=== PATIENT | female | born 1935 | race African-American/Black ===

== ENCOUNTER 2019-04-30 14:20 | Emergency (ER) | payer MEDICARE ==
[2019-04-30] MEDS ORDERED: Adacel (T-DAP) 0.5 ML SYRINGE ONE (14:33)
--- NOTE | 2019-04-30 14:57 | CT ---
Exam: Head CT without contrast HISTORY: Trauma. Fall. Pain. COMPARISON: none FINDINGS: Hemorrhage: No intraparenchymal hemorrhage or extra-axial hematoma. Brain parenchyma: Cortical merlos-white matter differentiation is preserved. No mass effect or midline shift. Basilar cisterns are patent.Age-appropriate atrophy. Chronic small vessel ischemic changes of the white matter. Ventricular system: Ventricles and sulci are patent and symmetric. Calvarium: Intact. Sinuses and mastoid air cells: Adequate aeration. Orbits and facial soft tissues: No posttraumatic change. Bilateral ocular lens implants are appropria tely located IMPRESSION: No acute posttraumatic sequelae.
--- NOTE | 2019-04-30 15:01 | CT ---
Exam: CT cervical spine without contrast HISTORY: Trauma. Pain. COMPARISON: None FINDINGS: No craniocervical dissociation. Appropriate alignment of the lateral masses of C1 and C2. Intact odon toid process Appropriate alignment of the facets. Straightening of cervical lordosis is presumed to be due to patient position, muscle spasm or cervica l collar. Soft tissue neck structures: Atherosclerosis of the right carotid artery. Nonspecific calcification i n the left neck. Asymmetric fullness in the posterior left hypopharynx. The possibility of mucosal-based lesion cannot be entirely excluded. Nonemergent direct visualization and ENT consultati on is recommended (axial image #27, series 2). Upper mediastinum and lung apices: Unremarkable Central spinal canal: Multilevel degenerative changes of the cervical spine with loss of disc space h eight and osteophyte formation. There are varying degrees of central canal stenosis and neural foraminal narrowing. Technique limits evaluation. Vertebral bodies: Cervical spine vertebral body height is maintained. No fracture. IMPRESSION: 1. No fracture. 2. Asymmetric mucosal prominence in the posterior left hypopharynx. Recommendations as above. 3. Straightening of cervical lordosis as described above. MRI if there is concern for ligamentous inj ury.
== END 2019-04-30 15:58 | disposition home or self-care (01) ==
LOC: ERS 14:20
DX: S00.81XA Abrasion of other part of head, initial encounter (principal); I10 Essential (primary) hypertension; Z79.82 Long term (current) use of aspirin; Z79.899 Other long term (current) drug therapy; W18.30XA Fall on same level, unspecified, initial encounter
CPT/HCPCS: 70450; 72125; 90471; 90715

== ENCOUNTER 2020-02-03 11:27 | Emergency (ER) | payer MEDICARE ==
--- NOTE | 2020-02-03 12:32 | RAD ---
Chest AP view INDICATION: Dyspnea COMPARISON: Prior acute abdominal series dated October 10, 2016 FINDINGS: Lungs: Stable chronic lung changes Cardiac silhouette: Stable mild cardiomegaly Pulmonary vasculature: Normal Pleural spaces: No pleural effusion or pneumothorax is demonstrated. Upper abdomen: No abnormality seen. Osseous structures: The sclerotic lesion of the proximal right humerus is stable to comparison dated 02/25/2016 is suspicious for a low-grade chondroid lesion. Additional findings: None. IMPRESSION: No acute cardiopulmonary abnormality.
[2020-02-03 12:55] LABS: #Lymphocytes 0.9 thou/uL (1.20-3.40); #Monocytes 0.3 thou/uL (0.11-0.59); %Basophils 1.3 % (0.0-1.0); %Eosinophils 0.7 % (0.0-10.0); %Lymphocytes 41.5 % (21.0-51.0); %Monocytes 11.4 % (0.0-10.0); %Neutrophils 45.1 % (42.0-75.0); Hemoglobin 13.1 g/dL (12.0-16.0); Mean Corpuscular HGB CONC 31.7 g/dL (32.0-36.0); Mean Corpuscular Hemoglobin 29.2 pg (27.0-31.0); Mean Corpuscular Volume 91.9 fL (78.0-98.0); Platelet Count 124 thou/uL (130-400); RBC Distribution Width 12.5 % (11.5-14.5); Red Blood Cell (RBC) Count 4.48 mill/uL (4.20-5.40); White Blood Cell (WBC) Count 2.3 thou/uL (4.8-10.8)
[2020-02-03 12:57] LABS: INR-International Normal Ratio 1.1; PTT 30.6 sec (22.9-36.1); Prothrombin Time 13.9 sec (12.0-14.7)
--- NOTE | 2020-02-03 13:12 | CT ---
CT Brain WO Con: 02/03/2020 1:00 PM CLINICAL HISTORY: Headache with dizziness. IMAGING TECHNIQUE: Multiple CT images were obtained of the brain without IV contrast. COMPARISON: Prior exam dated April 30, 2019 FINDINGS: BRAIN: Evidence of acute infarct: None. Evidence of chronic ischemic change:Stable moderate chronic small vessel white matter ischemic change . Evidence of intracranial hemorrhage: None. Evidence of brain volume loss:Stable generalized cerebral and cerebellar atrophy Evidence of midline shift: Third ventricle and septum pellucidum are midline. Ventricles: Normal. No hydrocephalus. SKULL: Intact. VISUALIZED PARANASAL SINUSES: Clear. MASTOID AIR CELLS: Clear. EXTRACRANIAL SOFT TISSUES: Normal. IMPRESSION: No acute intracranial abnormality.
[2020-02-03 13:14] LABS: ALT (SGPT) 16 U/L (8-55); AST (SGOT) 23 U/L (5-34); Albumin 3.9 g/dL (3.4-4.8); Alkaline Phosphatase 42 U/L (40-110); Anion Gap 12 mmol/L (10-20); BUN (Urea Nitrogen) 9 mg/dL (9.8-20.1); Bilirubin, Total 0.3 mg/dL (0.2-1.2); Calc. Creatinine Clearance 0 mL/min (70-130); Calcium 8.9 mg/dL (7.8-10.44); Carbon Dioxide 29 mmol/L (23-31); Chloride 104 mmol/L (98-107); Globulin 3.4 g/dL (2.4-3.5); Glucose 87 mg/dL (83-110); Potassium 3.2 mmol/L (3.5-5.1); Protein, Total 7.3 g/dL (6.0-8.3); Sodium 142 mmol/L (136-145)
[2020-02-03 14:07] LABS: Bacteria/HPF 4+ HPF (None Seen); Bilirubin Negative (Negative); Blood, Urine Trace (Negative); Clarity Turbid (Clear); Glucose, Urine (Dipstick) Normal (Negative); Ketone, Urine Negative (Negative); Leukocyte Negative Leu/uL (Negative); Mucous/LPF 1+ LPF (<2+); Nitrite Negative (Negative); Protein, Urine (Dipstick) 10 mg/dL (Neg-Trace); Urobilinogen Normal mg/dL (Less than 2); WBC/HPF 0-3 HPF (0-3); pH, Urine 6.5 (5.0-9.0)
[2020-02-04 00:01] LABS: SARS-CoV-2 by NAA DETECTED (NotDetected); SARS-CoV-2 orf1ab Positive
[2020-02-04 00:02] LABS: SARS-CoV-2 MS2 Positive; SARS-CoV-2 N Gene Positive; SARS-CoV-2 S Gene Positive
== END 2020-02-03 15:30 | disposition home or self-care (01) ==
LOC: ERS 11:27
DX: R53.81 Other malaise (principal); I10 Essential (primary) hypertension
CPT/HCPCS: 70450; 71045; 80053; 84484; 85025; 85610; 85730; 93005; U0003; 36415; 81003; 81015; 87635

== ENCOUNTER 2022-02-05 19:28 | Inpatient (IN) | payer MEDICARE ==
[2022-02-05 20:08] LABS: #Lymphocytes 1.7 thou/uL (1.20-3.40); #Monocytes 0.5 thou/uL (0.11-0.59); #Neutrophils 2.5 thou/uL (1.40-6.50); %Basophils 0.4 % (0.0-1.0); %Eosinophils 0.6 % (0.0-10.0); %Lymphocytes 36.2 % (21.0-51.0); %Monocytes 9.5 % (0.0-10.0); %Neutrophils 53.4 % (42.0-75.0); Hemoglobin 12.4 g/dL (12.0-16.0); Mean Corpuscular HGB CONC 32.6 g/dL (32.0-36.0); Mean Corpuscular Hemoglobin 30.2 pg (27.0-31.0); Mean Corpuscular Volume 92.8 fl (78.0-98.0); Mean Platelet Volume 8.7 fL (7.4-10.4); Platelet Count 150 10x3/uL (130-400); RBC Distribution Width 12.6 % (11.5-14.5); Red Blood Cell (RBC) Count 4.11 mill/uL (4.20-5.40); White Blood Cell (WBC) Count 4.7 10x3/uL (4.8-10.8)
[2022-02-05 20:30] LABS: Bacteria/HPF None Seen HPF (None Seen); Bilirubin Negative (Negative); Blood, Urine Trace (Negative); Clarity Turbid (Clear); Glucose, Urine (Dipstick) 30 mg/dL (Negative); Ketone, Urine 40 mg/dL (Negative); Leukocyte Negative Leu/uL (Negative); Nitrite Negative (Negative); Protein, Urine (Dipstick) 30 mg/dL (Neg-Trace); Specific Gravity, Urine 1.019 (1.002-1.036); Squamous Epithelial 0-3 HPF (0-3)
[2022-02-05 20:43] LABS: ALT (SGPT) 12 U/L (8-55); AST (SGOT) 34 U/L (5-34); Albumin 3.8 g/dL (3.4-4.8); Alkaline Phosphatase 41 U/L (40-110); Anion Gap 15 mmol/L (10-20); BUN (Urea Nitrogen) 12 mg/dL (9.8-20.1); Bilirubin, Total 0.8 mg/dL (0.2-1.2); Calc. Creatinine Clearance 0 mL/min (70-130); Calcium 9.2 mg/dL (7.8-10.44); Carbon Dioxide 25 mmol/L (23-31); Chloride 105 mmol/L (98-107); Estimated GFR 58; Glucose 120 mg/dL (83-110); Potassium 3.4 mmol/L (3.5-5.1); Protein, Total 6.8 g/dL (5.8-8.1)
[2022-02-05 20:49] LABS: CKMB 8.3 ng/mL (0-6.6); Sodium 142 mmol/L (136-145)
[2022-02-05] MEDS ORDERED: Electrolyte Replacement Protocol 1 EACH FS PRN (21:15)
[2022-02-05] MEDS ORDERED: Aspirin 325 MG TAB ONE (21:23)
[2022-02-05 21:30] LABS: CK (CPK) 974 U/L (29-168); Magnesium 1.8 mg/dL (1.6-2.6)
[2022-02-05] MEDS ORDERED: Ondansetron PF 4 MG/2 ML Vial IVP PRN (21:56)
[2022-02-05] MEDS ORDERED: Ondansetron ODT 4 MG TAB PO PRN (21:56)
[2022-02-05 21:58] LABS: Phosphorus 3.7 mg/dL (2.3-4.7)
[2022-02-05 22:46] LABS: Amphetamine Not Detected (NotDetected); Barbiturates Screen Not Detected (NotDetected); Benzodiazepine Screen Not Detected (NotDetected); Cocaine Metabolite Screen Not Detected (NotDetected); Methadone Not Detected (NotDetected); Methamphetamine Not Detected (NotDetected); Opiate Screen Not Detected (NotDetected); Oxycodone Screen Not Detected (NotDetected); Phencyclidine (PCP) Not Detected (NotDetected); THC/Cannabinoid Screen Not Detected (NotDetected); Tricyclic Screen Not Detected (NotDetected)
[2022-02-05] MEDS ORDERED: Magnesium 2 GM/50 ML(in water) 2 GM in Premix Bag 1 BAG IVPB SCH (23:59)
[2022-02-06 00:01] LABS: Troponin I 0.103 ng/mL (< 0.028)
[2022-02-06 02:58] LABS: Troponin I 0.112 ng/mL (< 0.028)
[2022-02-06 03:36] LABS: SARS-CoV-2 NAA Rapid Test Not Detected (NotDetected)
[2022-02-06 08:04] LABS: #Eosinphils 0.1 thou/uL (0.0-0.7); #Lymphocytes 1.6 thou/uL (1.20-3.40); #Monocytes 0.4 thou/uL (0.11-0.59); #Neutrophils 1.9 thou/uL (1.40-6.50); %Basophils 0.7 % (0.0-1.0); %Eosinophils 1.8 % (0.0-10.0); %Lymphocytes 39.4 % (21.0-51.0); %Monocytes 9.8 % (0.0-10.0); %Neutrophils 48.3 % (42.0-75.0); Hemoglobin 12.8 g/dL (12.0-16.0); Mean Corpuscular HGB CONC 31.6 g/dL (32.0-36.0); Mean Corpuscular Hemoglobin 29.5 pg (27.0-31.0); Mean Corpuscular Volume 93.3 fl (78.0-98.0); Mean Platelet Volume 8.6 fL (7.4-10.4); Platelet Count 164 10x3/uL (130-400); RBC Distribution Width 12.5 % (11.5-14.5); Red Blood Cell (RBC) Count 4.33 mill/uL (4.20-5.40); White Blood Cell (WBC) Count 3.9 10x3/uL (4.8-10.8)
[2022-02-06 08:29] LABS: Anion Gap 21 mmol/L (10-20); BUN (Urea Nitrogen) 7 mg/dL (9.8-20.1); Calc. Creatinine Clearance 0 mL/min (70-130); Calcium 8.8 mg/dL (7.8-10.44); Carbon Dioxide 14 mmol/L (23-31); Chloride 117 mmol/L (98-107); Estimated GFR 81; Glucose 89 mg/dL (83-110); Sodium 148 mmol/L (136-145)
[2022-02-06] MEDS ORDERED: Amlodipine 5 MG TAB PO SCH (11:08)
[2022-02-06] MEDS: Lactated Ringer's 1,000 ML IV SCH (11:31)
[2022-02-06] MEDS ORDERED: Amlodipine 5 MG TAB ONE (11:31)
[2022-02-06] MEDS: NS 0.9% w/ 40 MEQ KCL 1,000 ML IV SCH (14:03)
[2022-02-06 17:57] VITALS: BMI 18.1
[2022-02-06] MEDS: Donepezil HCl 5 MG TAB PO SCH (20:45)
[2022-02-06] MEDS: Atorvastatin Calcium 10 MG TAB PO SCH (20:45)
[2022-02-07] MEDS: Lactated Ringer's 1,000 ML IV SCH ×2 (06:48→20:48)
[2022-02-07 06:55] LABS: #Lymphocytes 1.3 thou/uL (1.20-3.40); #Monocytes 0.3 thou/uL (0.11-0.59); #Neutrophils 1.9 thou/uL (1.40-6.50); %Basophils 0.8 % (0.0-1.0); %Eosinophils 1.1 % (0.0-10.0); %Monocytes 7.3 % (0.0-10.0); %Neutrophils 53.7 % (42.0-75.0); Hemoglobin 13.7 g/dL (12.0-16.0); Mean Corpuscular HGB CONC 31.9 g/dL (32.0-36.0); Mean Corpuscular Hemoglobin 29.6 pg (27.0-31.0); Mean Corpuscular Volume 92.7 fl (78.0-98.0); Mean Platelet Volume 8.8 fL (7.4-10.4); Platelet Count 171 10x3/uL (130-400); RBC Distribution Width 12.6 % (11.5-14.5); Red Blood Cell (RBC) Count 4.63 mill/uL (4.20-5.40); White Blood Cell (WBC) Count 3.6 10x3/uL (4.8-10.8)
[2022-02-07 07:15] LABS: Anion Gap 12 mmol/L (10-20); BUN (Urea Nitrogen) 8 mg/dL (9.8-20.1); Calc. Creatinine Clearance 57 mL/min (70-130); Calcium 9.2 mg/dL (7.8-10.44); Carbon Dioxide 27 mmol/L (23-31); Chloride 101 mmol/L (98-107); Estimated GFR 87; Glucose 81 mg/dL (83-110); Potassium 3.3 mmol/L (3.5-5.1); Sodium 137 mmol/L (136-145)
[2022-02-07] MEDS ORDERED: Potassium Chloride 20 MEQ TAB PO SCH (08:00)
[2022-02-07] MEDS ORDERED: hydrALAZINE 25 MG TAB PO PRN (08:14)
[2022-02-07] MEDS ORDERED: Multivit, Adult Inj 10 ML VIAL IV SCH (08:15)
[2022-02-07] MEDS ORDERED: Amlodipine 5 MG TAB PO SCH ×2 (09:00)
[2022-02-07] MEDS: Folic Acid 1 MG TAB PO SCH (09:39)
[2022-02-07] MEDS: PARoxetine 20 MG TAB PO SCH (09:39)
[2022-02-07] MEDS: Cyanocobalamin (Vitamin B-12) 1,000 MCG TAB PO SCH (09:40)
[2022-02-07] MEDS ORDERED: Multivitamins, Adult 10 ML in Sodium Chloride 0.9% 500 ML IV SCH (10:00)
[2022-02-07] MEDS: Megestrol Acetate 40 MG TAB PO SCH (10:37)
[2022-02-07] MEDS ORDERED: Potassium Bicarbonate/Cit Ac 20 MEQ TAB PO SCH (17:00)
[2022-02-07] MEDS: Atorvastatin Calcium 10 MG TAB PO SCH (20:49)
[2022-02-07] MEDS: Donepezil HCl 5 MG TAB PO SCH (20:49)
[2022-02-07] MEDS: Acetaminophen 325 MG TAB PO PRN (20:50)
[2022-02-07] MEDS: Senokot S 8.6-50 MG TAB PO SCH (21:04)
[2022-02-08 06:31] LABS: Anion Gap 14 mmol/L (10-20); BUN (Urea Nitrogen) 12 mg/dL (9.8-20.1); CK (CPK) 448 U/L (29-168); Calc. Creatinine Clearance 56 mL/min (70-130); Calcium 9.5 mg/dL (7.8-10.44); Carbon Dioxide 23 mmol/L (23-31); Estimated GFR 86; Glucose 93 mg/dL (83-110); Magnesium 1.5 mg/dL (1.6-2.6); Sodium 139 mmol/L (136-145)
[2022-02-08 06:33] LABS: Chloride 106 mmol/L (98-107)
[2022-02-08 07:54] LABS: #Eosinphils 0.1 thou/uL (0.0-0.7); #Lymphocytes 1.7 thou/uL (1.20-3.40); #Monocytes 0.5 thou/uL (0.11-0.59); #Neutrophils 3.5 thou/uL (1.40-6.50); %Basophils 0.3 % (0.0-1.0); %Eosinophils 1.2 % (0.0-10.0); %Lymphocytes 29.1 % (21.0-51.0); %Monocytes 8.9 % (0.0-10.0); %Neutrophils 60.6 % (42.0-75.0); Mean Corpuscular HGB CONC 32.6 g/dL (32.0-36.0); Mean Corpuscular Hemoglobin 30.2 pg (27.0-31.0); Mean Corpuscular Volume 92.6 fl (78.0-98.0); Platelet Count 175 10x3/uL (130-400); RBC Distribution Width 12.6 % (11.5-14.5); Red Blood Cell (RBC) Count 4.31 mill/uL (4.20-5.40); White Blood Cell (WBC) Count 5.8 10x3/uL (4.8-10.8)
[2022-02-08] MEDS ORDERED: Magnesium 2 GM/50 ML(in water) 2 GM in Premix Bag 1 BAG IVPB SCH (08:00)
[2022-02-08] MEDS: Amlodipine 5 MG TAB PO SCH ×2 (08:21→21:34)
[2022-02-08] MEDS: Senokot S 8.6-50 MG TAB PO SCH ×2 (08:22→21:34)
[2022-02-08] MEDS: Folic Acid 1 MG TAB PO SCH (08:22)
[2022-02-08] MEDS: Multivit, Therapeutic 1 TAB PO SCH (08:22)
[2022-02-08] MEDS: Cyanocobalamin (Vitamin B-12) 1,000 MCG TAB PO SCH (08:22)
[2022-02-08] MEDS: PARoxetine 20 MG TAB PO SCH (08:22)
[2022-02-08] MEDS ORDERED: Cyanocobalamin (Vitamin B-12) 1,000 MCG TAB PO SCH (09:00)
[2022-02-08] MEDS ORDERED: Folic Acid 1 MG TAB PO SCH (09:00)
[2022-02-08] MEDS ORDERED: Amlodipine 5 MG TAB PO SCH (09:00)
[2022-02-08] MEDS: Megestrol Acetate 40 MG TAB PO SCH (09:05)
[2022-02-08] MEDS: Lactated Ringer's 1,000 ML IV SCH ×2 (09:06→17:26)
[2022-02-08] MEDS: Donepezil HCl 5 MG TAB PO SCH (21:34)
[2022-02-09] MEDS: Lactated Ringer's 1,000 ML IV SCH (01:15)
[2022-02-09 05:26] LABS: Anion Gap 14 mmol/L (10-20); BUN (Urea Nitrogen) 9 mg/dL (9.8-20.1); CK (CPK) 321 U/L (29-168); Calc. Creatinine Clearance 55 mL/min (70-130); Calcium 9.4 mg/dL (7.8-10.44); Carbon Dioxide 21 mmol/L (23-31); Chloride 105 mmol/L (98-107); Estimated GFR 86; Glucose 95 mg/dL (83-110); Magnesium 1.8 mg/dL (1.6-2.6); Potassium 4.1 mmol/L (3.5-5.1); Sodium 136 mmol/L (136-145)
[2022-02-09] MEDS ORDERED: Magnesium 2 GM/50 ML(in water) 2 GM in Premix Bag 1 BAG IVPB SCH (08:00)
[2022-02-09] MEDS ORDERED: Amlodipine 5 MG TAB PO SCH (09:00)
[2022-02-09] MEDS: Senokot S 8.6-50 MG TAB PO SCH ×2 (09:37→20:03)
[2022-02-09] MEDS: Megestrol Acetate 40 MG TAB PO SCH (09:37)
[2022-02-09] MEDS: PARoxetine 20 MG TAB PO SCH (09:37)
[2022-02-09] MEDS: Multivit, Therapeutic 1 TAB PO SCH (09:37)
[2022-02-09] MEDS: Folic Acid 1 MG TAB PO SCH (09:37)
[2022-02-09] MEDS: Cyanocobalamin (Vitamin B-12) 1,000 MCG TAB PO SCH (09:38)
[2022-02-09] MEDS: Carvedilol 3.125 MG TAB PO SCH (17:34)
[2022-02-09] MEDS: Donepezil HCl 5 MG TAB PO SCH (20:03)
[2022-02-09] MEDS: Bisacodyl 10 MG SUPP PR SCH (20:03)
[2022-02-09] MEDS: Acetaminophen 325 MG TAB PO PRN (20:04)
[2022-02-09] MEDS ORDERED: Metoprolol Tartrate 25 MG TAB PO SCH (21:00)
[2022-02-10] MEDS: Lactated Ringer's 1,000 ML IV SCH (02:14)
[2022-02-10 07:56] LABS: Anion Gap 14 mmol/L (10-20); BUN (Urea Nitrogen) 13 mg/dL (9.8-20.1); Calc. Creatinine Clearance 54 mL/min (70-130); Calcium 9.6 mg/dL (7.8-10.44); Carbon Dioxide 26 mmol/L (23-31); Chloride 103 mmol/L (98-107); Estimated GFR 86; Glucose 100 mg/dL (83-110); Sodium 139 mmol/L (136-145)
[2022-02-10] MEDS ORDERED: Amlodipine 5 MG TAB PO SCH (09:00)
[2022-02-10] MEDS: Megestrol Acetate 40 MG TAB PO SCH (09:32)
[2022-02-10] MEDS: Senokot S 8.6-50 MG TAB PO SCH ×2 (09:32→21:30)
[2022-02-10] MEDS: Carvedilol 3.125 MG TAB PO SCH ×2 (09:33→17:31)
[2022-02-10] MEDS: Folic Acid 1 MG TAB PO SCH (09:33)
[2022-02-10] MEDS: Multivit, Therapeutic 1 TAB PO SCH (09:33)
[2022-02-10] MEDS: Cyanocobalamin (Vitamin B-12) 1,000 MCG TAB PO SCH (09:33)
[2022-02-10] MEDS: PARoxetine 20 MG TAB PO SCH (09:33)
[2022-02-10] MEDS: Donepezil HCl 5 MG TAB PO SCH (21:30)
[2022-02-10] MEDS: Acetaminophen 325 MG TAB PO PRN (21:34)
[2022-02-10] MEDS: Bisacodyl 10 MG SUPP PR SCH (21:36)
[2022-02-11] MEDS: Carvedilol 3.125 MG TAB PO SCH (09:53)
[2022-02-11] MEDS: Cyanocobalamin (Vitamin B-12) 1,000 MCG TAB PO SCH (09:54)
[2022-02-11] MEDS: PARoxetine 20 MG TAB PO SCH (09:57)
[2022-02-11] MEDS: Folic Acid 1 MG TAB PO SCH (09:58)
[2022-02-11] MEDS: Megestrol Acetate 40 MG TAB PO SCH (10:00)
[2022-02-11] MEDS: Multivit, Therapeutic 1 TAB PO SCH (10:00)
[2022-02-11] MEDS: Senokot S 8.6-50 MG TAB PO SCH (10:00)
[2022-02-11 12:00] VITALS: BP 86/56; TEMP 97.5
== END 2022-02-11 15:37 | DRG 640 ==
LOC: ERS 19:28 → ERHOLD 21:07 → OBSVTOIN 02-06 16:21 → 2NO 02-06 16:58
PROVIDERS: ADMIT Internal Medicine; ATTEND Internal Medicine
DX: E86.0 Dehydration (principal); Z20.822 Contact with and (suspected) exposure to COVID-19; G93.41 Metabolic encephalopathy; I21.A1 Myocardial infarction type 2; I50.32 Chronic diastolic (congestive) heart failure; M62.82 Rhabdomyolysis; I13.0 Hypertensive heart and chronic kidney disease with heart failure and stage 1 through stage 4 chronic kidney disease, or unspecified chronic kidney disease; E78.5 Hyperlipidemia, unspecified; F03.90 Unspecified dementia, unspecified severity, without behavioral disturbance, psychotic disturbance, mood disturbance, and anxiety; E87.6 Hypokalemia; E83.42 Hypomagnesemia; I49.3 Ventricular premature depolarization; D72.819 Decreased white blood cell count, unspecified; N18.30 Chronic kidney disease, stage 3 unspecified; I95.1 Orthostatic hypotension; Z79.899 Other long term (current) drug therapy
CPT/HCPCS: 36415; 70450; 71045; 80048; 80053; 80306; 81003; 81015; 82550; 82553; 83605; 83735; 83880; 84100; 84484; 85025; 87086; 93005; G0378; J3475; J7030; J7120; S0179; U0002

== ENCOUNTER 2022-10-02 14:39 | Inpatient (IN) | payer MEDICARE ==
[2022-10-02 15:09] LABS: #Eosinphils 0.4 thou/uL (0.0-0.7); #Monocytes 0.3 thou/uL (0.11-0.59); #Neutrophils 1.9 thou/uL (1.40-6.50); %Eosinophils 9.7 % (0.0-10.0); %Lymphocytes 35.3 % (21.0-51.0); %Monocytes 7.2 % (0.0-10.0); %Neutrophils 46.8 % (42.0-75.0); Hematocrit 38.4 % (36.0-47.0); Hemoglobin 12.1 g/dL (12.0-16.0); Mean Corpuscular HGB CONC 31.5 g/dL (32.0-36.0); Mean Corpuscular Hemoglobin 29.2 pg (27.0-31.0); Mean Corpuscular Volume 92.8 fl (78.0-98.0); Mean Platelet Volume 10.3 fL (7.4-10.4); Platelet Count 160 10x3/uL (130-400); RBC Distribution Width 14.7 % (11.5-14.5); Red Blood Cell (RBC) Count 4.14 mill/uL (4.20-5.40)
[2022-10-02 15:36] LABS: ALT (SGPT) 23 U/L (8-55); AST (SGOT) 27 U/L (5-34); Albumin 3.6 g/dL (3.4-4.8); Alkaline Phosphatase 56 U/L (40-110); Anion Gap 11 mmol/L (10-20); BUN (Urea Nitrogen) 12 mg/dL (9.8-20.1); Bilirubin, Total 0.4 mg/dL (0.2-1.2); Calc. Creatinine Clearance 0 mL/min (70-130); Carbon Dioxide 20 mmol/L (23-31); Chloride 111 mmol/L (98-107); Estimated GFR 70; Globulin 3.1 g/dL (2.4-3.5); Glucose 113 mg/dL (83-110); Potassium 3.4 mmol/L (3.5-5.1); Protein, Total 6.7 g/dL (5.8-8.1); Sodium 139 mmol/L (136-145)
[2022-10-02 15:37] LABS: Troponin I Less than 0.010 ng/mL (< 0.028)
[2022-10-02] MEDS ORDERED: Ondansetron PF 4 MG/2 ML Vial IVP PRN (21:53)
[2022-10-02] MEDS ORDERED: Ondansetron ODT 4 MG TAB PO PRN (21:53)
[2022-10-02] MEDS ORDERED: Acetaminophen 325 MG TAB PO PRN (21:53)
[2022-10-02] MEDS ORDERED: Acetaminophen 650 MG Suppository PR PRN (21:53)
[2022-10-02 22:23] VITALS: BMI 20.5
[2022-10-02] MEDS ORDERED: hydrALAZINE 25 MG TAB PO PRN (23:58)
[2022-10-03 04:33] LABS: #Eosinphils 0.4 thou/uL (0.0-0.7); #Monocytes 0.3 thou/uL (0.11-0.59); #Neutrophils 1.5 thou/uL (1.40-6.50); %Basophils 0.8 % (0.0-1.0); %Eosinophils 9.8 % (0.0-10.0); %Lymphocytes 41.5 % (21.0-51.0); %Monocytes 7.1 % (0.0-10.0); %Neutrophils 40.8 % (42.0-75.0); Hemoglobin 11.6 g/dL (12.0-16.0); Mean Corpuscular HGB CONC 33.1 g/dL (32.0-36.0); Mean Corpuscular Hemoglobin 29.1 pg (27.0-31.0); Mean Platelet Volume 11.4 fL (7.4-10.4); Platelet Count 180 10x3/uL (130-400); RBC Distribution Width 14.4 % (11.5-14.5); Red Blood Cell (RBC) Count 3.98 mill/uL (4.20-5.40); White Blood Cell (WBC) Count 3.8 10x3/uL (4.8-10.8)
[2022-10-03 04:41] LABS: Mean Corpuscular Volume 87.9 fl (78.0-98.0)
[2022-10-03 04:53] LABS: Anion Gap 10 mmol/L (10-20); BUN (Urea Nitrogen) 9 mg/dL (9.8-20.1); Calc. Creatinine Clearance 45 mL/min (70-130); Calcium 8.9 mg/dL (7.8-10.44); Carbon Dioxide 22 mmol/L (23-31); Chloride 109 mmol/L (98-107); Estimated GFR 81; Glucose 82 mg/dL (83-110); Potassium 3.3 mmol/L (3.5-5.1); Sodium 138 mmol/L (136-145)
[2022-10-03] MEDS ORDERED: Electrolyte Replacement Protocol 1 EACH FS SCH (05:30)
[2022-10-03 06:21] LABS: Magnesium 1.8 mg/dL (1.6-2.6)
[2022-10-03 07:37] LABS: SARS-CoV-2 NAA Rapid Test Not Detected (NotDetected)
[2022-10-03] MEDS ORDERED: Magnesium 2 GM/50 ML(in water) 2 GM in Premix Bag 1 BAG IVPB SCH (08:00)
[2022-10-03] MEDS ORDERED: Potassium Chloride 20 MEQ TAB PO SCH (08:00)
[2022-10-03] MEDS ORDERED: Amlodipine 5 MG TAB PO SCH ×2 (09:15→12:30)
[2022-10-03] MEDS: Megestrol Acetate 40 MG TAB PO SCH (09:21)
[2022-10-03] MEDS: Multivit, Therapeutic 1 TAB PO SCH (09:23)
[2022-10-03] MEDS: Cyanocobalamin (Vitamin B-12) 1,000 MCG TAB PO SCH (09:23)
[2022-10-03] MEDS: Folic Acid 1 MG TAB PO SCH (09:23)
[2022-10-03] MEDS: PARoxetine 20 MG TAB PO SCH (09:23)
[2022-10-03] MEDS ORDERED: hydrALAZINE 20 MG/ML VIAL SLOW IVP SCH (12:00)
[2022-10-03] MEDS: Atorvastatin Calcium 10 MG TAB PO SCH (21:40)
[2022-10-03] MEDS: Donepezil HCl 5 MG TAB PO SCH (21:40)
[2022-10-04 04:27] LABS: #Eosinphils 0.3 thou/uL (0.0-0.7); #Monocytes 0.3 thou/uL (0.11-0.59); #Neutrophils 1.3 thou/uL (1.40-6.50); %Basophils 1.1 % (0.0-1.0); %Eosinophils 8.6 % (0.0-10.0); %Lymphocytes 46.5 % (21.0-51.0); %Monocytes 8.3 % (0.0-10.0); %Neutrophils 35.2 % (42.0-75.0); Hematocrit 34.5 % (36.0-47.0); Hemoglobin 11.2 g/dL (12.0-16.0); Mean Corpuscular HGB CONC 32.5 g/dL (32.0-36.0); Mean Corpuscular Hemoglobin 28.9 pg (27.0-31.0); Mean Corpuscular Volume 89.1 fl (78.0-98.0); Mean Platelet Volume 10.5 fL (7.4-10.4); Platelet Count 164 10x3/uL (130-400); RBC Distribution Width 14.4 % (11.5-14.5); Red Blood Cell (RBC) Count 3.87 mill/uL (4.20-5.40); White Blood Cell (WBC) Count 3.7 10x3/uL (4.8-10.8)
[2022-10-04 04:52] LABS: Anion Gap 10 mmol/L (10-20); BUN (Urea Nitrogen) 13 mg/dL (9.8-20.1); Calc. Creatinine Clearance 45 mL/min (70-130); Calcium 8.9 mg/dL (7.8-10.44); Carbon Dioxide 23 mmol/L (23-31); Chloride 107 mmol/L (98-107); Estimated GFR 81; Glucose 90 mg/dL (83-110); Potassium 3.8 mmol/L (3.5-5.1); Sodium 136 mmol/L (136-145)
[2022-10-04] MEDS ORDERED: Amlodipine 5 MG TAB PO SCH (09:00)
[2022-10-04] MEDS: Megestrol Acetate 40 MG TAB PO SCH (09:22)
[2022-10-04] MEDS: Folic Acid 1 MG TAB PO SCH (09:22)
[2022-10-04] MEDS: Multivit, Therapeutic 1 TAB PO SCH (09:22)
[2022-10-04] MEDS: Cyanocobalamin (Vitamin B-12) 1,000 MCG TAB PO SCH (09:22)
[2022-10-04] MEDS: Amlodipine 10 MG TAB PO SCH (09:22)
[2022-10-04] MEDS: PARoxetine 20 MG TAB PO SCH (09:22)
[2022-10-04] MEDS: Donepezil HCl 5 MG TAB PO SCH (20:26)
[2022-10-04] MEDS: Atorvastatin Calcium 10 MG TAB PO SCH (20:26)
[2022-10-05] MEDS: PARoxetine 20 MG TAB PO SCH (10:16)
[2022-10-05] MEDS: Amlodipine 10 MG TAB PO SCH (10:17)
[2022-10-05] MEDS: Cyanocobalamin (Vitamin B-12) 1,000 MCG TAB PO SCH (10:17)
[2022-10-05] MEDS: Megestrol Acetate 40 MG TAB PO SCH (10:17)
[2022-10-05] MEDS: Folic Acid 1 MG TAB PO SCH (10:17)
[2022-10-05] MEDS: Multivit, Therapeutic 1 TAB PO SCH (10:17)
[2022-10-05 11:52] VITALS: BP 151/91; TEMP 98.5
[2022-10-05] MEDS ORDERED: Magnesium 2 GM/50 ML(in water) 2 GM in Premix Bag 1 BAG IVPB SCH (14:00)
== END 2022-10-05 13:48 | disposition home or self-care (01) | DRG 310 ==
LOC: ERS 14:39 → 2NO 19:43 → OBSVTOIN 10-03 18:25
PROVIDERS: ADMIT Student in an Organized Health Care Education/Training Program; ATTEND Family Medicine
DX: R00.1 Bradycardia, unspecified (principal); F03.90 Unspecified dementia, unspecified severity, without behavioral disturbance, psychotic disturbance, mood disturbance, and anxiety; M19.90 Unspecified osteoarthritis, unspecified site; I10 Essential (primary) hypertension; E78.5 Hyperlipidemia, unspecified; E87.6 Hypokalemia; I95.9 Hypotension, unspecified; I25.10 Atherosclerotic heart disease of native coronary artery without angina pectoris; T44.7X5A Adverse effect of beta-adrenoreceptor antagonists, initial encounter; Z20.822 Contact with and (suspected) exposure to COVID-19; Z90.49 Acquired absence of other specified parts of digestive tract; Z90.710 Acquired absence of both cervix and uterus; Z79.899 Other long term (current) drug therapy
CPT/HCPCS: 36415; 70450; 80048; 80053; 83735; 84484; 85025; 93005; 94760; J1650; J3475; S0179; U0002

== ENCOUNTER 2022-11-02 20:29 | Emergency (ER) | payer MEDICARE ==
[2022-11-02 21:54] LABS: #Eosinphils 0.1 thou/uL (0.0-0.7); #Monocytes 0.4 thou/uL (0.11-0.59); #Neutrophils 1.9 thou/uL (1.40-6.50); %Basophils 0.9 % (0.0-1.0); %Eosinophils 2.7 % (0.0-10.0); %Lymphocytes 45.7 % (21.0-51.0); %Monocytes 8.5 % (0.0-10.0); Hematocrit 35.3 % (36.0-47.0); Hemoglobin 11.3 g/dL (12.0-16.0); Mean Corpuscular Hemoglobin 29.7 pg (27.0-31.0); Mean Corpuscular Volume 92.9 fl (78.0-98.0); Mean Platelet Volume 11.1 fL (7.4-10.4); Platelet Count 144 10x3/uL (130-400); RBC Distribution Width 15.5 % (11.5-14.5); White Blood Cell (WBC) Count 4.5 10x3/uL (4.8-10.8)
[2022-11-02 22:21] LABS: ALT (SGPT) 23 U/L (8-55); AST (SGOT) 24 U/L (5-34); Albumin 3.9 g/dL (3.4-4.8); Alkaline Phosphatase 49 U/L (40-110); Anion Gap 13 mmol/L (10-20); BUN (Urea Nitrogen) 16 mg/dL (9.8-20.1); Bilirubin, Total 0.3 mg/dL (0.2-1.2); CK (CPK) 176 U/L (29-168); Calc. Creatinine Clearance 0 mL/min (70-130); Calcium 9.1 mg/dL (7.8-10.44); Carbon Dioxide 18 mmol/L (23-31); Chloride 110 mmol/L (98-107); Estimated GFR 82; Globulin 3.4 g/dL (2.4-3.5); Glucose 87 mg/dL (83-110); Protein, Total 7.3 g/dL (5.8-8.1); Sodium 137 mmol/L (136-145)
[2022-11-02 22:22] LABS: Acetaminophen Less than 10 mcg/mL (10.0-30.0); Alcohol Less than 10.0 mg/dL (Less than 10); Lipase 56 U/L (8-78); Salicylate Less than 8.0 mg/dL (15.0-30.0)
[2022-11-02 22:57] LABS: Troponin I Less than 0.010 ng/mL (< 0.028)
[2022-11-02 22:59] LABS: Amphetamine Not Detected (NotDetected); Bacteria/HPF 3+ HPF (None Seen); Barbiturates Screen Not Detected (NotDetected); Benzodiazepine Screen Not Detected (NotDetected); Bilirubin Negative (Negative); Blood, Urine Negative (Negative); CAUTI Indications for Culture Alt mental st,lethar; Clarity Turbid (Clear); Cocaine Metabolite Screen Not Detected (NotDetected); Glucose, Urine (Dipstick) Normal (Negative); Ketone, Urine Negative (Negative); Leukocyte 75 Leu/uL (Negative); Methadone Not Detected (NotDetected); Methamphetamine Not Detected (NotDetected); Nitrite 2+ (Negative); Opiate Screen Not Detected (NotDetected); Oxycodone Screen Not Detected (NotDetected); Phencyclidine (PCP) Not Detected (NotDetected); Protein, Urine (Dipstick) Negative (Neg-Trace); RBC/HPF 0-3 HPF (0-3); Specific Gravity, Urine 1.014 (1.002-1.036); Squamous Epithelial 0-3 HPF (0-3); THC/Cannabinoid Screen Not Detected (NotDetected); Tricyclic Screen Not Detected (NotDetected); Urobilinogen Normal mg/dL (Less than 2); pH, Urine 7.5 (5.0-9.0)
[2022-11-02 23:00] LABS: Urine Culture Reflex No No
[2022-11-02] MEDS ORDERED: cefTRIAXone (ROCEPHIN) 1 GM VIAL ONE (23:10)
[2022-11-02 23:29] LABS: SARS-CoV-2 NAA Rapid Test Not Detected (NotDetected)
== END 2022-11-03 00:10 | disposition home or self-care (01) ==
LOC: ERS 20:29
DX: N39.0 Urinary tract infection, site not specified (principal); E78.5 Hyperlipidemia, unspecified; I10 Essential (primary) hypertension; Z20.822 Contact with and (suspected) exposure to COVID-19
CPT/HCPCS: 0240U; 51701; 70450; 71045; 80306; 80307; 81001; 82140; 82550; 82962; 83605; 83690; 83880; 84484; 87040; 87077; 87086; 87186; 93005; 96374; 99285; 36415; 36416; 80053; 84443; 85025; J0696

== ENCOUNTER 2023-04-10 21:50 | Inpatient (IN) | payer MEDICARE ==
[2023-04-10 23:30] LABS: #Eosinphils 0.1 thou/uL (0.0-0.7); #Monocytes 0.4 thou/uL (0.11-0.59); #Neutrophils 1.9 thou/uL (1.40-6.50); %Basophils 0.5 % (0.0-1.0); %Eosinophils 2.5 % (0.0-10.0); %Lymphocytes 37.6 % (21.0-51.0); %Monocytes 10.9 % (0.0-10.0); %Neutrophils 48.2 % (42.0-75.0); Hematocrit 35.6 % (36.0-47.0); Hemoglobin 11.3 g/dL (12.0-16.0); Mean Corpuscular HGB CONC 31.7 g/dL (32.0-36.0); Mean Corpuscular Hemoglobin 28.9 pg (27.0-31.0); Mean Platelet Volume 10.8 fL (7.4-10.4); Platelet Count 196 10x3/uL (130-400); RBC Distribution Width 15.9 % (11.5-14.5); Red Blood Cell (RBC) Count 3.91 mill/uL (4.20-5.40); White Blood Cell (WBC) Count 3.9 10x3/uL (4.8-10.8)
[2023-04-11 00:02] LABS: ALT (SGPT) 13 U/L (8-55); AST (SGOT) 20 U/L (5-34); Albumin 3.4 g/dL (3.4-4.8); Alkaline Phosphatase 60 U/L (40-110); Anion Gap 14 mmol/L (10-20); BUN (Urea Nitrogen) 14 mg/dL (9.8-20.1); Bilirubin, Total 0.3 mg/dL (0.2-1.2); Calc. Creatinine Clearance 0 mL/min (70-130); Calcium 8.9 mg/dL (7.8-10.44); Carbon Dioxide 22 mmol/L (23-31); Chloride 107 mmol/L (98-107); Estimated GFR 81; Globulin 3.4 g/dL (2.4-3.5); Glucose 81 mg/dL (83-110); Lipase 28 U/L (8-78); Magnesium 1.8 mg/dL (1.6-2.6); Potassium 4.2 mmol/L (3.5-5.1); Protein, Total 6.8 g/dL (5.8-8.1); Sodium 139 mmol/L (136-145)
[2023-04-11 00:03] LABS: Troponin I Less than 0.010 ng/mL (< 0.028)
[2023-04-11 01:52] LABS: Bacteria/HPF None Seen HPF (None Seen); Bilirubin Negative (Negative); Blood, Urine Trace (Negative); CAUTI Indications for Culture Pelvic or flank pain; Clarity Clear (Clear); Glucose, Urine (Dipstick) Normal (Negative); Ketone, Urine Negative (Negative); Leukocyte Negative Leu/uL (Negative); Nitrite Negative (Negative); Protein, Urine (Dipstick) Negative (Neg-Trace); RBC/HPF 0-3 HPF (0-3); Specific Gravity, Urine 1.041 (1.002-1.036); Squamous Epithelial 0-3 HPF (0-3); Urobilinogen Normal mg/dL (Less than 2); WBC/HPF 0-3 HPF (0-3); pH, Urine 6.5 (5.0-9.0)
[2023-04-11 01:53] LABS: Urine Culture Reflex No No
[2023-04-11] MEDS ORDERED: Ondansetron ODT 4 MG TAB PO PRN (05:20)
[2023-04-11] MEDS ORDERED: Acetaminophen 650 MG Suppository PR PRN (05:20)
[2023-04-11] MEDS ORDERED: Piperacillin/Tazobactam 4.5 GM VIAL ONE (05:27)
[2023-04-11] MEDS ORDERED: Sodium Chloride 0.9% 100 ML ONE (05:27)
[2023-04-11] MEDS: Lactated Ringer's 1,000 ML IV SCH (05:30)
[2023-04-11] MEDS ORDERED: Piperacillin/Tazobactam 4.5 GM in Sodium Chloride 0.9% 100 ML IVPB SCH (06:00)
[2023-04-11 09:40] VITALS: BMI 19.5
[2023-04-11] MEDS: Piperacillin/Tazobactam 3.375 GM in Sodium Chloride 0.9% 100 ML IVPB SCH (09:52)
[2023-04-11] MEDS: Famotidine/PF 20 mg/2ml Vial SLOW IVP SCH (09:53)
[2023-04-11] MEDS: hydrALAZINE 20 MG/ML VIAL SLOW IVP PRN (09:53)
[2023-04-11] MEDS: Famotidine 20 MG TAB PO SCH (10:53)
[2023-04-11] MEDS: Amlodipine 10 MG TAB PO SCH (11:57)
[2023-04-11] MEDS: hydrALAZINE 25 MG TAB PO SCH (12:01)
[2023-04-11] MEDS: Acetaminophen 325 MG TAB PO PRN (18:53)
[2023-04-11] MEDS: Ondansetron PF 4 MG/2 ML Vial IVP PRN (20:32)
[2023-04-11] MEDS: Melatonin 3 MG TAB PO SCH (23:10)
[2023-04-12 04:51] LABS: #Monocytes 0.3 thou/uL (0.11-0.59); #Neutrophils 2.7 thou/uL (1.40-6.50); %Basophils 0.7 % (0.0-1.0); %Eosinophils 0.5 % (0.0-10.0); %Lymphocytes 25.5 % (21.0-51.0); %Monocytes 8.3 % (0.0-10.0); %Neutrophils 64.8 % (42.0-75.0); Hemoglobin 10.9 g/dL (12.0-16.0); Mean Corpuscular Hemoglobin 28.8 pg (27.0-31.0); Mean Corpuscular Volume 87.3 fl (78.0-98.0); Mean Platelet Volume 10.6 fL (7.4-10.4); Platelet Count 216 10x3/uL (130-400); RBC Distribution Width 15.5 % (11.5-14.5); Red Blood Cell (RBC) Count 3.78 mill/uL (4.20-5.40); White Blood Cell (WBC) Count 4.1 10x3/uL (4.8-10.8)
[2023-04-12 05:09] LABS: Anion Gap 11 mmol/L (10-20); BUN (Urea Nitrogen) 12 mg/dL (9.8-20.1); Calc. Creatinine Clearance 49 mL/min (70-130); Calcium 8.5 mg/dL (7.8-10.44); Carbon Dioxide 22 mmol/L (23-31); Chloride 106 mmol/L (98-107); Estimated GFR 76; Glucose 132 mg/dL (83-110); Potassium 3.8 mmol/L (3.5-5.1); Sodium 135 mmol/L (136-145)
[2023-04-12] MEDS: Polyethylene Glycol 3350 17 GM Packet PO SCH (10:52)
[2023-04-12] MEDS: Amlodipine 10 MG TAB PO SCH (10:53)
[2023-04-12] MEDS: Lactulose 20 GM (30 mL) UDCUP PO SCH (14:58)
[2023-04-12] MEDS: Fleet Saline Enema 133 ML BOT PR SCH (14:59)
[2023-04-12] MEDS: Enoxaparin 30 MG (0.3 mL) SYRINGE SC SCH (22:01)
[2023-04-13 05:06] LABS: Anion Gap 14 mmol/L (10-20); BUN (Urea Nitrogen) 10 mg/dL (9.8-20.1); Calc. Creatinine Clearance 50 mL/min (70-130); Calcium 8.1 mg/dL (7.8-10.44); Carbon Dioxide 22 mmol/L (23-31); Chloride 108 mmol/L (98-107); Estimated GFR 79; Glucose 88 mg/dL (83-110); Potassium 3.4 mmol/L (3.5-5.1); Sodium 141 mmol/L (136-145)
[2023-04-13 08:31] LABS: Phosphorus 4.8 mg/dL (2.3-4.7)
[2023-04-13] MEDS: Mineral Oil ENEMA PR SCH (09:46)
[2023-04-13] MEDS: D5 1/2 NS w/20 mEq KCL 1,000 ML IV SCH (11:36)
[2023-04-13] MEDS: Senokot S 8.6-50 MG TAB PO SCH (12:28)
[2023-04-13] MEDS: Bisacodyl 10 MG SUPP PR SCH (14:40)
[2023-04-13] MEDS: Folic Acid 1 MG TAB PO SCH (20:30)
[2023-04-13] MEDS: Thiamine HCl 200 MG/2 ML VIAL SLOW IVP SCH (20:30)
[2023-04-13] MEDS: Cyanocobalamin (Vitamin B-12) 1,000 MCG TAB PO SCH (20:31)
[2023-04-13] MEDS ORDERED: Enoxaparin 40 MG (0.4 mL) SYRINGE SC SCH (21:00)
[2023-04-13] MEDS ORDERED: Thiamine 100 MG TAB PO SCH (21:00)
[2023-04-14 07:28] LABS: #Monocytes 0.7 thou/uL (0.11-0.59); #Neutrophils 3.3 thou/uL (1.40-6.50); %Basophils 0.4 % (0.0-1.0); %Eosinophils 0.2 % (0.0-10.0); %Lymphocytes 22.4 % (21.0-51.0); %Monocytes 13.3 % (0.0-10.0); %Neutrophils 63.5 % (42.0-75.0); Hematocrit 32.7 % (36.0-47.0); Hemoglobin 10.6 g/dL (12.0-16.0); Mean Corpuscular HGB CONC 32.4 g/dL (32.0-36.0); Mean Corpuscular Hemoglobin 28.1 pg (27.0-31.0); Mean Corpuscular Volume 86.7 fl (78.0-98.0); Mean Platelet Volume 10.8 fL (7.4-10.4); Platelet Count 207 10x3/uL (130-400); RBC Distribution Width 15.4 % (11.5-14.5); Red Blood Cell (RBC) Count 3.77 mill/uL (4.20-5.40); White Blood Cell (WBC) Count 5.2 10x3/uL (4.8-10.8)
[2023-04-14 08:03] LABS: Anion Gap 10 mmol/L (10-20); BUN (Urea Nitrogen) 11 mg/dL (9.8-20.1); Calc. Creatinine Clearance 51 mL/min (70-130); Calcium 8.4 mg/dL (7.8-10.44); Carbon Dioxide 23 mmol/L (23-31); Chloride 108 mmol/L (98-107); Estimated GFR 80; Glucose 113 mg/dL (83-110); Potassium 3.2 mmol/L (3.5-5.1); Sodium 138 mmol/L (136-145)
[2023-04-14] MEDS: Ergocalciferol 1.25 MG(50,000 UNITS) CAP PO SCH (08:17)
[2023-04-14] MEDS: D5 1/2 NS w/40 mEq KCL 1,000 ML IV SCH (12:02)
[2023-04-14] MEDS: Bisacodyl 5 MG TAB PO SCH (20:57)
[2023-04-14] MEDS: Polyethylene Glycol 3350 17 GM Packet PO SCH (20:57)
[2023-04-14] MEDS: Mineral Oil ENEMA PR SCH (20:59)
[2023-04-15 06:45] LABS: #Monocytes 0.8 thou/uL (0.11-0.59); #Neutrophils 5.1 thou/uL (1.40-6.50); %Basophils 0.3 % (0.0-1.0); %Lymphocytes 22.1 % (21.0-51.0); %Monocytes 10.7 % (0.0-10.0); %Neutrophils 66.6 % (42.0-75.0); Hematocrit 34.6 % (36.0-47.0); Hemoglobin 11.5 g/dL (12.0-16.0); Mean Corpuscular HGB CONC 33.2 g/dL (32.0-36.0); Mean Corpuscular Hemoglobin 29.3 pg (27.0-31.0); Platelet Count 192 10x3/uL (130-400); RBC Distribution Width 15.2 % (11.5-14.5); Red Blood Cell (RBC) Count 3.93 mill/uL (4.20-5.40); White Blood Cell (WBC) Count 7.6 10x3/uL (4.8-10.8)
[2023-04-15 07:02] LABS: Anion Gap 11 mmol/L (10-20); BUN (Urea Nitrogen) 13 mg/dL (9.8-20.1); Calc. Creatinine Clearance 54 mL/min (70-130); Calcium 8.7 mg/dL (7.8-10.44); Carbon Dioxide 22 mmol/L (23-31); Chloride 109 mmol/L (98-107); Estimated GFR 84; Glucose 99 mg/dL (83-110); Potassium 3.8 mmol/L (3.5-5.1); Sodium 138 mmol/L (136-145)
[2023-04-15] MEDS: Bisacodyl 10 MG SUPP PR SCH (16:29)
[2023-04-15] MEDS: hydrALAZINE 25 MG TAB PO SCH (16:30)
[2023-04-17] MEDS: D5 1/2 NS w/20 mEq KCL 1,000 ML IV SCH
[2023-04-17 09:22] LABS: #Eosinphils 0.1 thou/uL (0.0-0.7); #Monocytes 0.5 thou/uL (0.11-0.59); #Neutrophils 2.7 thou/uL (1.40-6.50); %Basophils 0.7 % (0.0-1.0); %Eosinophils 1.8 % (0.0-10.0); %Lymphocytes 27.6 % (21.0-51.0); %Monocytes 10.3 % (0.0-10.0); %Neutrophils 59.4 % (42.0-75.0); Hematocrit 32.6 % (36.0-47.0); Hemoglobin 10.7 g/dL (12.0-16.0); Mean Corpuscular HGB CONC 32.8 g/dL (32.0-36.0); Mean Corpuscular Hemoglobin 29.2 pg (27.0-31.0); Mean Corpuscular Volume 89.1 fl (78.0-98.0); Mean Platelet Volume 10.2 fL (7.4-10.4); Platelet Count 216 10x3/uL (130-400); Red Blood Cell (RBC) Count 3.66 mill/uL (4.20-5.40); White Blood Cell (WBC) Count 4.5 10x3/uL (4.8-10.8)
[2023-04-17 09:42] LABS: Anion Gap 11 mmol/L (10-20); BUN (Urea Nitrogen) 11 mg/dL (9.8-20.1); Calc. Creatinine Clearance 52 mL/min (70-130); Calcium 8.7 mg/dL (7.8-10.44); Carbon Dioxide 21 mmol/L (23-31); Chloride 106 mmol/L (98-107); Estimated GFR 81; Glucose 93 mg/dL (83-110); Potassium 4.4 mmol/L (3.5-5.1); Sodium 134 mmol/L (136-145)
[2023-04-17] MEDS: Nicotine 7 MG PATCH TD SCH (12:02)
[2023-04-18 08:18] VITALS: BP 115/71; TEMP 98
== END 2023-04-18 13:56 | DRG 70 ==
LOC: ERS 21:50 → ERHOLD 04-11 04:57 → EDBD 04-11 04:57 → 2SE 04-11 09:02 → T4-B 04-12 17:46
PROVIDERS: ADMIT Student in an Organized Health Care Education/Training Program; ATTEND Internal Medicine
DX: G93.41 Metabolic encephalopathy (principal); I62.03 Nontraumatic chronic subdural hemorrhage; G96.08 Other cranial cerebrospinal fluid leak; E87.1 Hypo-osmolality and hyponatremia; K52.89 Other specified noninfective gastroenteritis and colitis; F03.90 Unspecified dementia, unspecified severity, without behavioral disturbance, psychotic disturbance, mood disturbance, and anxiety; E78.5 Hyperlipidemia, unspecified; I10 Essential (primary) hypertension; K59.00 Constipation, unspecified; D72.819 Decreased white blood cell count, unspecified; R73.9 Hyperglycemia, unspecified; E87.6 Hypokalemia; E86.0 Dehydration; D53.9 Nutritional anemia, unspecified; E83.42 Hypomagnesemia; Z79.899 Other long term (current) drug therapy; Z90.710 Acquired absence of both cervix and uterus
CPT/HCPCS: 36415; 70450; 71260; 74018; 74177; 80048; 80053; 81001; 83690; 83735; 84100; 84484; 85025; 93005; 96365; J0360; J1650; J2405; J2543; J3411; J3480; J3490; J7120; S0028

== ENCOUNTER 2023-05-06 10:08 | Emergency (ER) | payer MEDICARE ==
[2023-05-06 11:02] LABS: #Basophils 0.03 10x3/uL (0.0-0.2); #Eosinphils Less than 0.03 10x3/uL (0.0-0.7); %Basophils 0.9 % (0.0-1.0); %Eosinophils 0.6 % (0.0-10.0); %Lymphocytes 50.3 % (21.0-51.0); %Monocytes 11.6 % (0.0-10.0); %Neutrophils 36.3 % (42.0-75.0); Hemoglobin 13.4 g/dL (12.0-16.0); Mean Corpuscular HGB CONC 31.9 g/dL (32.0-36.0); Mean Corpuscular Volume 87.9 fL (78.0-98.0); Mean Platelet Volume 10.9 fL (7.4-10.4); Platelet Count 169 10x3/uL (130-400); RBC Distribution Width 14.1 % (11.5-14.5); Red Blood Cell (RBC) Count 4.78 mill/uL (4.20-5.40)
[2023-05-06 11:09] LABS: ALT (SGPT) 15 U/L (8-55); AST (SGOT) 19 U/L (5-34); Albumin 3.5 g/dL (3.4-4.8); Alkaline Phosphatase 61 U/L (40-110); Anion Gap 13 mmol/L (10-20); BUN (Urea Nitrogen) 12 mg/dL (9.8-20.1); Bilirubin, Total 0.5 mg/dL (0.2-1.2); Calc. Creatinine Clearance 0 mL/min (70-130); Calcium 9.5 mg/dL (7.8-10.44); Carbon Dioxide 25 mmol/L (23-31); Chloride 106 mmol/L (98-107); Estimated GFR 85; Glucose 78 mg/dL (83-110); Potassium 3.8 mmol/L (3.5-5.1); Protein, Total 7.5 g/dL (5.8-8.1); Sodium 140 mmol/L (136-145)
== END 2023-05-06 12:03 | disposition home or self-care (01) ==
LOC: ERS 10:08
DX: R53.1 Weakness (principal); R00.8 Other abnormalities of heart beat; I10 Essential (primary) hypertension; Z79.899 Other long term (current) drug therapy
CPT/HCPCS: 36415; 80053; 83735; 85025; 93005